=== PATIENT | male | born 1995 | race Caucasian/White ===

== ENCOUNTER → 2023-01-05 11:52 | Outpatient (CLI) | payer OTHER, SELFPAY ==
--- NOTE | 2023-01-11 08:36 | PM.PFT.1 ---
Pulmonary Function Test Referral & Results Date Patient Seen: 01/05/23 Results: The spirometry demonstrates an FVC of 5.07 L which is 86% of predicted. The FEV1 was measured at 4.36 L which is 91% of predicted. The FEV1/FVC ratio was 86 which is 104% of predicted. Following the administration of bronchodilator there was 13% improvement in FEV1 and a 18% improvement in FEF 25-75%. Interpretation: This study demonstrates probably normal forced spirometry
== END ==
PROVIDERS: Referring Provider Chiropractor; Visit Provider Chiropractor
DX: J45.909 Unspecified asthma, uncomplicated (principal); Z87.891 Personal history of nicotine dependence
CPT/HCPCS: 94060